=== PATIENT | female | born 1955 | race Caucasian/White ===

== ENCOUNTER → 2016-08-07 | Outpatient (CLI) | payer OTHER ==
[~2016-08-07] MED LIST: LACT1CAP37 PO; LEVO100T5 PO; NAPR220T77 PO; blood pressure med PO
== END | disposition home or self-care (01) ==
LOC: STAR 13:38
PROVIDERS: ATTEND Internal Medicine Critical Care Medicine
DX: Z01.810 Encounter for preprocedural cardiovascular examination (principal); R91.8 Other nonspecific abnormal finding of lung field
CPT/HCPCS: 93005